=== PATIENT | female | born 1980 | race Caucasian/White ===

== ENCOUNTER 2016-08-23 21:43 | Outpatient (CLI) | payer OTHER ==
[2016-01-28 10:58] VITALS: BP 131/64
[2016-08-23] MEDS ORDERED: 0.9 % SODIUM CHLORIDE 1,000 ML IV ONE ×3 (21:50→22:55)
== END 2016-08-23 21:44 ==
LOC: INF 21:43
PROVIDERS: ATTEND Family Medicine
DX: E86.0 Dehydration (principal); Z98.84 Bariatric surgery status
CPT/HCPCS: 96360; 96361; J7030; S1016

== ENCOUNTER 2016-09-25 12:14 | Outpatient (CLI) | payer OTHER ==
[2016-01-28 10:58] VITALS: BP 131/64
[2016-09-25 12:33] LABS: BASOPHILS % 0.3 (0.0-1.5); EOSINOPHILS % 1.7 % (0.0-6.8); LYMPHOCYTES # 1.1 # k/uL (0.6-4.0); MEAN CORPUSCULAR HEMOGLOBIN 31.3 pg (28.0-34.0); MONOCYTES # 0.2 # k/uL (0.0-0.9); MONOCYTES % 4.8 % (0.0-11.0); NEUTROPHILS # 2.9 # k/uL (1.4-7.7)
[2016-09-25 13:03] LABS: eGFR (African) > 60; eGFR (Non-African) > 60
[2016-09-25 21:50] LABS: SERUM IRON 59 ug/dL (37-145)
[2016-09-26 01:02] LABS: VITAMIN D, 25-HYDROXY 50 ng/mL (30-100)
[2016-09-29 00:51] LABS: VITAMIN B1 WHOLE BLOOD 143 nmol/L (70-180)
== END 2016-09-25 12:15 ==
LOC: LAB 12:14
PROVIDERS: ATTEND Internal Medicine
DX: Z98.84 Bariatric surgery status (principal); K90.9 Intestinal malabsorption, unspecified; E66.01 Morbid (severe) obesity due to excess calories; E66.3 Overweight; R63.8 Other symptoms and signs concerning food and fluid intake; Z13.29 Encounter for screening for other suspected endocrine disorder; M79.1 Myalgia
CPT/HCPCS: 36415; 80053; 80061; 82306; 82607; 82728; 82747; 83036; 83540; 83550; 83735; 83970; 84100; 84425; 84484; 85025

== ENCOUNTER 2016-11-01 12:06 | Outpatient (CLI) | payer OTHER ==
[2016-01-28 10:58] VITALS: BP 131/64
[2016-11-01 12:38] LABS: BASOPHILS % 0.4 (0.0-1.5); EOSINOPHILS % 1.4 % (0.0-6.8); LYMPHOCYTES # 1.2 # k/uL (0.6-4.0); MEAN CORPUSCULAR HEMOGLOBIN 30.6 pg (28.0-34.0); MONOCYTES # 0.2 # k/uL (0.0-0.9); MONOCYTES % 3.4 % (0.0-11.0); NEUTROPHILS # 3.1 # k/uL (1.4-7.7)
[2016-11-01 13:11] LABS: eGFR (African) > 60; eGFR (Non-African) > 60
[2016-11-01 22:46] LABS: MAGNESIUM 2.3 mg/dL (1.6-2.6); SERUM IRON 61 ug/dL (37-145)
[2016-11-02 16:51] LABS: VITAMIN D, 25-HYDROXY 58 ng/mL (30-100)
== END 2016-11-01 12:07 ==
LOC: LAB 12:06
PROVIDERS: ATTEND Internal Medicine
DX: E66.9 Obesity, unspecified (principal); Z13.29 Encounter for screening for other suspected endocrine disorder; Z98.84 Bariatric surgery status
CPT/HCPCS: 36415; 80053; 80061; 82306; 82607; 82728; 82747; 83036; 83540; 83550; 83735; 83970; 84100; 84425; 84484; 85025

== ENCOUNTER 2017-01-05 15:19 | Outpatient (CLI) | payer OTHER ==
[2017-01-05] MEDS ORDERED: 0.9 % SODIUM CHLORIDE 1,000 ML IV ONE ×2 (15:20→15:24)
[2017-01-05 16:29] VITALS: BP 110/56
== END 2017-01-05 15:20 ==
LOC: OUT 15:19
PROVIDERS: ATTEND Family Medicine
DX: E86.0 Dehydration (principal); Z98.84 Bariatric surgery status
CPT/HCPCS: 96360; J7030; S1016

== ENCOUNTER 2017-02-22 10:16 | Outpatient (CLI) | payer OTHER ==
[2017-02-22] MEDS ORDERED: 0.9 % SODIUM CHLORIDE 1,000 ML IV ONE ×2 (10:20→10:25)
[2017-02-22 10:31] VITALS: BP 106/66
== END 2017-02-22 10:17 ==
LOC: OUT 10:16
PROVIDERS: ATTEND Family Medicine
DX: E86.0 Dehydration (principal); Z98.84 Bariatric surgery status
CPT/HCPCS: J7030 ×2; 96360; S1016

== ENCOUNTER 2017-03-22 21:12 | Emergency (ER) | payer OTHER ==
[2017-03-22] MEDS: Lidocaine 1% 5ml(IM or SUTURE)(PAIN CLINIC) IJ ONE (21:15)
[2017-03-22] MEDS: DIPH,PERTUSS(ACELL),TET VAC/PF 0.5 ML DISP.SYRIN IM ONE (21:50)
--- NOTE | 2017-03-22 21:50 | ED Physician Documentation ---
General Adult - HISTORIAN Historian: patient - HPI Stated Complaint: FINGER LAC Chief Complaint: Suture Removal Onset: minutes Further Comments: yes (36 year old female patient presents with laceration from kitchen knife to left index finger posadas aspect. Last tetanus unknown.) - ROS CONST: no problems EYES/ENT: none CVS/RESP: none GI/: none - PAST HX Past History: other (GERD) Surgeries/Procedures: other (Gastric bypass) Allergies/Adverse Reactions: Allergies Allergy/AdvReac Type Severity Reaction Status Date / Time ibuprofen AdvReac Severe Anaphylaxis Verified 03/22/17 21:30 promethazine HCl AdvReac Intermediate Hives Verified 03/22/17 21:30 [From Phenergan] strawberry AdvReac Hives Verified 03/22/17 21:30 Home Medications: Ambulatory Orders Medication Instructions Recorded Spironolactone [Spironolactone] 100 mg PO DAILY 01/27/16 Ondansetron HCl Rapdis [Zofran Odt] 4 mg PO Q8 #8 tab 01/28/16 Pantoprazole Sodium [Protonix] 40 mg PO DAILY u2 12/15/16 - SOCIAL HX Smoking History: non-smoker - FAMILY HX Family History: No - VITAL SIGNS Vital Signs: Vital Signs Temp Pulse Resp BP Pulse Ox 98.2 F 68 16 124/78 98 03/22/17 21:13 03/22/17 21:13 03/22/17 21:13 03/22/17 21:13 03/22/17 21:13 - REVIEWED ASSESSMENTS Nursing Assessment Reviewed: Yes Vitals Reviewed: Yes Procedures Wound Location: other (left index finger) Wound Length: 1.5 Wound's Depth, Shape: linear Wound Explored: clean Irrigated w/ Saline (ccs): 200 Betadine Prep?: No (chlorhexidine) Anesthesia: 1% Lidocaine (with Neut 4%, digital block) Suture Size/Type: 5:0 Number of Sutures: 3 Layer Closure?: No Sterile Dressing Applied?: Yes Splint Applied?: No Progress: Digital block to left index finger with 1% lidocaine buffered with neut. Wound irrigated and cleaned by nursing. Wound explored, no tendon visualized. Repaired with 5.0 ethilon x 3 sutures, edges well approximated. Patient tolerated well. Reviewed discharge instructions. Patient verbalized understanding. ED Results Lab/Radiology - Orders Orders: ED Orders Category Date Time Status Aldair Gatica(Acell),Tet Vac/Pf [Adacel] Med 03/22/17 21:49 Discontinued 0.5 ml IM .ONCE ONE Lidocaine 1% 5ml(IM or SUTURE) [Xylocaine] Med 03/22/17 21:13 Discontinued 50 mg IJ NOW ONE General Adult Physical Exam - PHYSICAL EXAM GENERAL APPEARANCE: mild distress EENT: eye inspection normal RESPIRATORY: no resp distress CVS: reg rate & rhythm SKIN: warm/dry, normal color, other (left 2nd digit with 1.5 cm laceration to palmar aspect proximal to PIP joint) EXTREMITIES: non-tender, normal range of motion, no evidence of injury, no edema , other (No tendon visualized in laceration, ROM intact, complete extension and flexion. ) NEURO: oriented X3, CN's nml as tested, motor nml, sensation nml, mood/affect nml Discharge Clincal Impression: Finger laceration Qualifiers: Encounter type: initial encounter Finger: index finger Damage to nail status: without damage Foreign body presence: without foreign body Laterality: left Qualified Code(s): S61.211A - Laceration without foreign body of left index finger without damage to nail, initial encounter Referrals: Mandy Thompson MD [Primary Care Provider] - 2 Days Additional Instructions: Keep the wound clean and dry until it has healed. You can wash or shower after 24 hours. Do not soak the wound in water and make sure it is dry afterwards (gently pat the area dry with a clean towel). Do not get into a swimming pool, hot tub, munoz or river until your stitches are removed. To remove your dressing, gently pull it off. If needed, you can dampen it with water then gently pull it off. Clean the laceration twice a day with hibiclens and rinse with water clean away any scabbed area Apply thin coat of antibiotic ointment after cleaning the wound. Cover with non-adherent bandage if able. If you have pain, take simple pain relief medication such as Tylenol or ibuprofen. If bandages or dressings get wet, they will need to be changed. Call your doctor for any signs of symptom of infection redness, drainage, pain. Have your stitches removed at your doctors office in 10 days. Home Medications: Ambulatory Orders Spironolactone [Spironolactone] 100 mg PO DAILY 01/27/16 Ondansetron HCl Rapdis [Zofran Odt] 4 mg PO Q8 #8 tab 01/28/16 Pantoprazole Sodium [Protonix] 40 mg PO DAILY u2 12/15/16 Condition: Stable Disposition: 01 HOME, SELF-CARE Decision to Admit: NO Decision Time: 21:50
[2017-03-22 23:51] VITALS: BP 121/82
== END 2017-03-22 22:00 | disposition home or self-care (01) ==
LOC: ED 21:12
DX: S61.211A Laceration without foreign body of left index finger without damage to nail, initial encounter (principal); X58.XXXA Exposure to other specified factors, initial encounter; Y93.9 Activity, unspecified; Y99.9 Unspecified external cause status
CPT/HCPCS: 12001; 90471; 90715; 99283

== ENCOUNTER 2017-04-02 17:37 | Outpatient (CLI) | payer OTHER ==
[2017-04-02 17:47] LABS: BASOPHILS % 0.4 (0.0-1.5); EOSINOPHILS % 2.7 % (0.0-6.8); MEAN CORPUSCULAR HEMOGLOBIN 31.8 pg (28.0-34.0); MEAN CORPUSCULAR VOLUME 90.1 fl (80.0-100.0); MONOCYTES % 3.5 % (0.0-11.0); NEUTROPHILS # 5.8 # k/uL (1.4-7.7)
[2017-04-02 18:07] LABS: eGFR (African) > 60; eGFR (Non-African) > 60
[2017-04-02 22:51] LABS: LIPASE 22 U/L (13-60)
== END 2017-04-02 17:40 ==
LOC: LAB 17:37
PROVIDERS: ATTEND Physician Assistant
DX: R10.10 Upper abdominal pain, unspecified (principal)
CPT/HCPCS: 36415; 80053; 82150; 83690; 85025; 87507

== ENCOUNTER 2017-04-12 11:06 | Outpatient (CLI) | payer OTHER ==
--- NOTE | 2017-04-12 13:39 | Diagnostic Imaging Report ---
RODRI ALEJO [facility] [id number] [facility] [address] [address] Report Submission Date: Apr 12, 2017 12:01:21 PM CDT Patient Study Name: SUSI [place] Date: Apr 12, 2017 11:15:24 AM CDT Modality Type: CT\SR Gender: F Description: CT ABD & PELVIS W/ CON : 78 Institution: [facility] Physician: RODRI ALEJO Examination: CT Abdomen/pelvis History: Generalized abdominal discomfort Comparison exams: None available Technique: CT Abdomen/pelvis with IV protocol. Findings: Liver, spleen, adrenals, pancreas, and left kidney are without gross irregularity. No abnormal enhancement. Surgical clips gallbladder fossa. 3 mm calcification upper pole of the right kidney. Ureters to not appear to be dilated in their course through the abdomen and pelvis. Abdominal aorta without aneurysmal dilation or peripheral atherosclerotic disease. Stool/fluid within the large bowel limiting sensitivity. No mesenteric inflammatory changes or free fluid. Numerous loops of small bowel demonstrates air fluid levels. No overt wall thickening. Loop of small bowel demonstrates dilation to 3.6 cm within the left upper abdominal region. Appendix is visualized and is without inflammatory changes. Surgical changes at the gastroesophageal junction. Osseous structures demonstrate early degenerative changes. Lung bases without infiltrate. Impression: Focal dilated loop of small bowel. Scattered small bowel air fluid levels. Component of focal ileitis and generalized enteritis is a consideration. Right nephrolithiasis. No abdominal mass or other inflammatory process. Electronically signed on Apr 12, 2017 12:01:21 PM CDT by: Eleuterio TOLEDO
== END 2017-04-12 11:07 ==
LOC: RAD 11:06
PROVIDERS: ATTEND Physician Assistant
DX: R10.10 Upper abdominal pain, unspecified (principal)
CPT/HCPCS: 74177; Q9966; A9698

== ENCOUNTER 2017-08-22 10:33 | Outpatient (CLI) | payer OTHER ==
[2017-08-22 16:21] LABS: eGFR (African) > 60; eGFR (Non-African) > 60
== END 2017-08-22 10:34 ==
LOC: LAB 10:33
PROVIDERS: ATTEND Family Medicine
DX: E87.5 Hyperkalemia (principal); E83.39 Other disorders of phosphorus metabolism
CPT/HCPCS: 36415; 80048; 84100

== ENCOUNTER 2018-03-16 22:29 | Outpatient (CLI) | payer OTHER ==
[2018-03-21 11:22] LABS: APPEARANCE,URINE CLOUDY (CLEAR)
[2018-03-21 11:23] LABS: COLOR,URINE AMBER (YELLOW); OCCULT BLOOD,URINE 1+ (NEGATIVE)
== END 2018-03-16 22:30 ==
LOC: LAB 22:29
PROVIDERS: ATTEND Nurse Practitioner
DX: N39.0 Urinary tract infection, site not specified (principal)
CPT/HCPCS: 81002; 87086; 87186